=== PATIENT | female | born 1975 | race Two or more races ===

== ENCOUNTER 2023-01-23 10:32 | Emergency (ER) | payer OTHER ==
[~2023-01-23] VITALS: Ht 157.5 cm; Wt 70.3 kg
[2023-01-23] MEDS ORDERED: ACET1TAB23 PO (11:14)
[2023-01-23] MEDS ORDERED: ALBU18HF2 INH (11:17)
[2023-01-23 11:34] VITALS: BP 125/77; TEMP 98.1; O2SAT 94
== END 2023-01-23 11:35 | disposition home or self-care (01) ==
LOC: ER 10:32
DX: J11.1 Influenza due to unidentified influenza virus with other respiratory manifestations (principal); J45.909 Unspecified asthma, uncomplicated; Z91.018 Allergy to other foods; Z91.048 Other nonmedicinal substance allergy status; Z79.899 Other long term (current) drug therapy
CPT/HCPCS: A4606; A4663